=== PATIENT | female | born 1995 | race Caucasian/White ===

== ENCOUNTER → 2017-07-16 | Outpatient (CLI) | payer BC, OTHER ==
[2017-07-16 13:33] LABS: BASO % 0.3 % (0.0-1.0); EOS # 0.2 10^3/uL (0.0-0.50); EOS % 3.2 % (0.0-3.0); IMMATURE GRANULOCYTE % 0.3 % (0-0); LYMPH # 1.5 10^3/uL (1.5-6.5); MEAN CORPUSCULAR HEMOGLOBIN 29.3 pg (27.0-33.0); MEAN CORPUSCULAR HGB CONC 33.2 g/dl (32.0-36.5); MEAN CORPUSCULAR VOLUME 88.1 fl (80.0-96.0); MONO # 0.5 10^3/uL (0.0-0.8); MONO % 6.9 % (0.0-5.0); NEUTROPHILS # 4.7 10^3/uL (1.8-7.7); NEUTROPHILS % 68.3 % (36.0-66.0); PLATELET COUNT, AUTOMATED 289 10^3/uL (150-450); RED CELL DISTRIBUTION WIDTH 12.6 % (11.5-14.5); WHITE BLOOD COUNT 6.9 10^3/uL (4.0-10.0)
[2017-07-16 14:23] LABS: HBsAg Prenatal NEGATIVE (NEGATIVE)
== END ==
LOC: M SMT 09:57
PROVIDERS: ATTEND Advanced Practice Midwife
DX: Z34.81 Encounter for supervision of other normal pregnancy, first trimester (principal); Z3A.08 8 weeks gestation of pregnancy

== ENCOUNTER → 2017-11-21 | Outpatient (CLI) | payer BC, OTHER ==
[2017-11-21 14:17] LABS: HEMATOCRIT 35.8 % (36.0-47.0); HEMOGLOBIN 11.7 g/dl (12.0-16.0); MEAN CORPUSCULAR HEMOGLOBIN 29.3 pg (27.0-33.0); MEAN CORPUSCULAR HGB CONC 32.7 g/dl (32.0-36.5); MEAN CORPUSCULAR VOLUME 89.7 fl (80.0-96.0); PLATELET COUNT, AUTOMATED 244 10^3/uL (150-450); RED BLOOD COUNT 3.99 10^6/uL (4.00-5.40); RED CELL DISTRIBUTION WIDTH 13.8 % (11.5-14.5); WHITE BLOOD COUNT 9.1 10^3/uL (4.0-10.0)
[2017-11-21 14:39] LABS: GLUCOSE CHALLENGE TEST 1 HOUR 138 MG/DL (LESS THAN 140)
== END ==
LOC: M SMT 10:12
DX: Z34.82 Encounter for supervision of other normal pregnancy, second trimester (principal)
CPT/HCPCS: 82950

== ENCOUNTER → 2017-12-02 | Outpatient (CLI) | payer BC, OTHER ==
[2017-12-02 08:05] LABS: GLUCOSE, FASTING 88 MG/DL (LESS THAN 95)
[2017-12-02 09:47] LABS: 1 HR GLUCOSE 190 MG/DL (LESS THAN 180)
[2017-12-02 10:01] LABS: 2 HR GLUCOSE 121 MG/DL (LESS THAN 155)
[2017-12-02 11:36] LABS: 3 HR GLUCOSE 100 MG/DL (LESS THAN 140)
== END ==
LOC: M LAB 07:07
DX: R73.02 Impaired glucose tolerance (oral) (principal)

== ENCOUNTER → 2018-01-20 | Outpatient (REF) | payer OTHER | LOC: M LAB REF 17:01 | DX: Z34.83 Encounter for supervision of other normal pregnancy, third trimester (principal) | CPT/HCPCS: 87186 ==

== ENCOUNTER 2018-02-17 01:55 | Inpatient (IN) | payer BC, OTHER ==
[2018-02-17] MEDS: PENICILLIN G POTASSIUM IV 5 MU in D5W MINI-BAG PLUS 100 ML IV (03:31)
[2018-02-17] MEDS: LR 1,000 ML IV ×2 (03:37→14:09)
[2018-02-17 03:41] LABS: HEMATOCRIT 37.3 % (36.0-47.0); HEMOGLOBIN 12.4 g/dl (12.0-15.5); MEAN CORPUSCULAR HEMOGLOBIN 28.2 pg (27.0-33.0); MEAN CORPUSCULAR HGB CONC 33.2 g/dl (32.0-36.5); PLATELET COUNT, AUTOMATED 213 10^3/uL (150-450); RED BLOOD COUNT 4.39 10^6/uL (4.00-5.40); RED CELL DISTRIBUTION WIDTH 14.6 % (11.5-14.5); WHITE BLOOD COUNT 11.7 10^3/uL (4.0-10.0)
[2018-02-17] MEDS: LACTATED RINGER'S 1000 ML IV (04:29)
[2018-02-17] MEDS ORDERED: FENTANYL 2MCG/ML ROPIVACAINE 0.2% IN 0.9% NACL 200ML IVBAG As Ordered (05:06)
[2018-02-17] MEDS: PENICILLIN G POTASSIUM IV 2.5 MU in APPROPRIATE DILUENT 1 EA IV ×4 (08:47→20:01)
[2018-02-17] MEDS: OXYTOCIN DRIP 30 UNITS in APPROPRIATE DILUENT 1 EA IV (10:17)
[2018-02-17 23:37] LABS: CORD GAS ABE A -5.2; CORD GAS ABE V -3.9; CORD GAS HCO3 A 21.4 MEQ/L; CORD GAS HCO3 V 19.1 MEQ/L; CORD GAS O2 SAT A 49.2 %; CORD GAS O2 SAT V 84.1 %; CORD GAS PCO2 A 45.3 mmHg; CORD GAS PCO2 V 30.2 mmHg; CORD GAS PH A 7.292 UNITS; CORD GAS PH V 7.419 UNITS; CORD GAS PO2 A 22.2 mmHg; CORD GAS PO2 V 36.8 mmHg; CORD GAS SBC V 20.9 MEQ/L; CORD GAS TCO2 A 22.8 MEQ/L
[2018-02-18] MEDS: OXYTOCIN DRIP 30 UNITS in APPROPRIATE DILUENT 1 EA IV (00:08)
[2018-02-18] MEDS ORDERED: RHOGAM 300 MCG (1500 IU) INJ (J2790) IM (00:15)
[2018-02-18] MEDS: METHYLERGONOVINE MALEATE 0.2 MG/ML VIAL (J2210) IM (00:15)
[2018-02-18] MEDS ORDERED: METHYLERGONOVINE MALEATE 0.2 MG TAB PO (00:15)
[2018-02-18] MEDS ORDERED: MEASLES,MUMPS,RUBELLA VACCINE INJ (MMR-II) (90707) SC (00:15)
[2018-02-18] MEDS ORDERED: ONDANSETRON 4MG/2ML VIAL (J2405) IV (00:15)
[2018-02-18] MEDS: LIDOCAINE 1% MDV 20ML VIAL INFIL (00:15)
[2018-02-18] MEDS: IBUPROFEN 800 MG TAB PO ×2 (04:04→17:04)
[2018-02-18] MEDS: ACETAMINOPHEN 500 MG TAB PO ×2 (06:34→20:35)
[2018-02-18] MEDS: PRENATAL VITAMINS CHEWABLE TABLET PO (08:57)
[2018-02-18] MEDS: DIBUCAINE 1% OINTMENT 30GM TOP (20:35)
[2018-02-18] MEDS: DOCUSATE SODIUM 100 MG CAP PO (20:35)
[2018-02-19] MEDS: IBUPROFEN 800 MG TAB PO ×2 (06:00→15:09)
[2018-02-19] MEDS: PRENATAL VITAMINS CHEWABLE TABLET PO (09:00)
== END 2018-02-19 17:00 | disposition home or self-care (01) | DRG 560 ==
LOC: M LDO 01:55 → M OBS 02-18 01:40 → M LDI 02:52 → M OBS 02-18 23:38
PROVIDERS: Advanced Practice Midwife
PROC: 10E0XZZ Delivery of Products of Conception, External Approach (ICD-10-PCS; principal; 2018-02-17)
PROC: 0KQM0ZZ Repair Perineum Muscle, Open Approach (ICD-10-PCS; 2018-02-17)
PROC: 0UQMXZZ Repair Vulva, External Approach (ICD-10-PCS; 2018-02-17)
DX: O99.824 Streptococcus B carrier state complicating childbirth (principal); O69.81X0 Labor and delivery complicated by cord around neck, without compression, not applicable or unspecified; Z37.0 Single live birth; Z3A.39 39 weeks gestation of pregnancy; O71.82 Other specified trauma to perineum and vulva; O70.1 Second degree perineal laceration during delivery

== ENCOUNTER 2018-03-17 19:13 | Emergency (ER) | payer BC, OTHER ==
[2018-03-17] MEDS: NS 1,000 ML IV (20:00)
[2018-03-17 20:10] LABS: BASO % 0.2 % (0.0-1.0); EOS # 0.2 10^3/uL (0.0-0.50); EOS % 3.5 % (0.0-3.0); HEMATOCRIT 35.6 % (36.0-47.0); IMMATURE GRANULOCYTE % 0.2 % (0-3.0); LYMPH # 2.2 10^3/uL (1.5-6.5); LYMPH % 38.1 % (24.0-44.0); MEAN CORPUSCULAR HGB CONC 33.7 g/dl (32.0-36.5); MONO # 0.5 10^3/uL (0.0-0.8); MONO % 8.1 % (0.0-5.0); NEUTROPHILS # 2.8 10^3/uL (1.8-7.7); NEUTROPHILS % 49.9 % (36.0-66.0); PLATELET COUNT, AUTOMATED 239 10^3/uL (150-450); RED BLOOD COUNT 4.29 10^6/uL (4.00-5.40); RED CELL DISTRIBUTION WIDTH 13.4 % (11.5-14.5); WHITE BLOOD COUNT 5.7 10^3/uL (4.0-10.0)
[2018-03-17 20:14] LABS: ALBUMIN 3.4 GM/DL (3.2-5.2); ALKALINE PHOSPHATASE 131 U/L (45-117); ALT/SGPT 41 U/L (12-78); ANION GAP 12 MEQ/L (8-16); AST/SGOT 34 U/L (7-37); BILIRUBIN,DIRECT 0.1 MG/DL (0.0-0.2); BILIRUBIN,TOTAL 0.4 MG/DL (0.2-1.0); BLOOD UREA NITROGEN 8 MG/DL (7-18); CALCIUM LEVEL 8.9 MG/DL (8.5-10.1); CARBON DIOXIDE LEVEL 24 MEQ/L (21-32); CHLORIDE LEVEL 109 MEQ/L (98-107); CREATININE FOR GFR 0.78 MG/DL (0.55-1.30); GLOMERULAR FILTRATION RATE > 60.0 (>60); GLUCOSE, FASTING 103 MG/DL (70-100); LIPASE 132 U/L (73-393); POTASSIUM SERUM 3.2 MEQ/L (3.5-5.1); SODIUM LEVEL 145 MEQ/L (136-145); TOTAL PROTEIN 6.5 GM/DL (6.4-8.2)
[2018-03-17] MEDS: POTASSIUM CHLORIDE 10 MEQ SR TABLET PO (20:31)
[2018-03-17] MEDS: PANTOPRAZOLE 40MG INJ (PROTONIX) (C9113) IV (20:31)
== END 2018-03-17 21:33 | disposition home or self-care (01) ==
LOC: M ED 19:13
DX: O99.63 Diseases of the digestive system complicating the puerperium (principal); K52.9 Noninfective gastroenteritis and colitis, unspecified
CPT/HCPCS: C9113

== ENCOUNTER 2018-03-19 20:57 | Emergency (ER) | payer BC, OTHER ==
[2018-03-19 22:09] LABS: BASO % 0.5 % (0.0-1.0); EOS # 0.3 10^3/uL (0.0-0.50); EOS % 5.2 % (0.0-3.0); HEMATOCRIT 38.8 % (36.0-47.0); HEMOGLOBIN 12.8 g/dl (12.0-15.5); IMMATURE GRANULOCYTE % 0.3 % (0-3.0); LYMPH # 1.3 10^3/uL (1.5-6.5); LYMPH % 22.5 % (24.0-44.0); MEAN CORPUSCULAR HEMOGLOBIN 27.8 pg (27.0-33.0); MEAN CORPUSCULAR VOLUME 84.2 fl (80.0-96.0); MONO # 0.3 10^3/uL (0.0-0.8); MONO % 5.5 % (0.0-5.0); NEUTROPHILS # 3.8 10^3/uL (1.8-7.7); PLATELET COUNT, AUTOMATED 256 10^3/uL (150-450); RED BLOOD COUNT 4.61 10^6/uL (4.00-5.40); RED CELL DISTRIBUTION WIDTH 13.5 % (11.5-14.5); WHITE BLOOD COUNT 5.8 10^3/uL (4.0-10.0)
[2018-03-19 22:14] LABS: KETONE, URINE AUTO RFX TRACE mg/dL (NEGATIVE); LEUKOCYTE ESTERASE UR AUTO RFX NEGATIVE (NEGATIVE); MUCUS, URINE RFX SMALL (NEGATIVE); NITRITE, URINE AUTO RFX NEGATIVE (NEGATIVE); RBC, URINE AUTO RFX 2 /HPF (0-3); SPECIFIC GRAVITY UR AUTO RFX 1.012 (1.002-1.035); SQUAM EPITHELIAL CELL UR AURFX 1 /HPF (0-6); WBC, URINE AUTO RFX 3 /HPF (0-3)
[2018-03-19 22:33] LABS: ALBUMIN 3.6 GM/DL (3.2-5.2); ALBUMIN/GLOBULIN RATIO 1.03 (1.00-1.93); ALKALINE PHOSPHATASE 406 U/L (45-117); ALT/SGPT 465 U/L (12-78); ANION GAP 8 MEQ/L (8-16); AST/SGOT 419 U/L (7-37); BILIRUBIN,DIRECT 4.2 MG/DL (0.0-0.2); BILIRUBIN,TOTAL 5.4 MG/DL (0.2-1.0); BLOOD UREA NITROGEN 5 MG/DL (7-18); CALCIUM LEVEL 8.5 MG/DL (8.5-10.1); CARBON DIOXIDE LEVEL 27 MEQ/L (21-32); CHLORIDE LEVEL 107 MEQ/L (98-107); CREATININE FOR GFR 0.75 MG/DL (0.55-1.30); GLOMERULAR FILTRATION RATE > 60.0 (>60); GLUCOSE, FASTING 100 MG/DL (70-100); LIPASE 133 U/L (73-393); POTASSIUM SERUM 3.9 MEQ/L (3.5-5.1); SODIUM LEVEL 142 MEQ/L (136-145); TOTAL PROTEIN 7.1 GM/DL (6.4-8.2)
[2018-03-19] MEDS: ONDANSETRON 4MG/2ML VIAL (J2405) IV (23:10)
[2018-03-19] MEDS: MORPHINE 4 MG/ML 1ML VIAL/SYRINGE (J2270) IV (23:11)
[2018-03-20] MEDS: MORPHINE 4 MG/ML 1ML VIAL/SYRINGE (J2270) IV (02:00)
== END 2018-03-20 02:18 | disposition short-term general hospital (02) ==
LOC: M ED 20:57
DX: K80.50 Calculus of bile duct without cholangitis or cholecystitis without obstruction (principal)
CPT/HCPCS: J2270

== ENCOUNTER 2018-03-23 11:20 | Inpatient (IN) | payer BC, OTHER ==
[2018-03-23 11:50] LABS: BASO % 0.3 % (0.0-1.0); EOS # 0.2 10^3/uL (0.0-0.50); EOS % 2.8 % (0.0-3.0); HEMATOCRIT 40.5 % (36.0-47.0); HEMOGLOBIN 13.3 g/dl (12.0-15.5); IMMATURE GRANULOCYTE % 0.3 % (0-3.0); LYMPH # 1.2 10^3/uL (1.5-6.5); LYMPH % 15.5 % (24.0-44.0); MEAN CORPUSCULAR HEMOGLOBIN 28.1 pg (27.0-33.0); MEAN CORPUSCULAR HGB CONC 32.8 g/dl (32.0-36.5); MEAN CORPUSCULAR VOLUME 85.4 fl (80.0-96.0); MONO # 0.5 10^3/uL (0.0-0.8); MONO % 6.6 % (0.0-5.0); NEUTROPHILS # 5.9 10^3/uL (1.8-7.7); NEUTROPHILS % 74.5 % (36.0-66.0); PLATELET COUNT, AUTOMATED 278 10^3/uL (150-450); RED BLOOD COUNT 4.74 10^6/uL (4.00-5.40); RED CELL DISTRIBUTION WIDTH 14.4 % (11.5-14.5); WHITE BLOOD COUNT 7.9 10^3/uL (4.0-10.0)
[2018-03-23 11:59] LABS: KETONE, URINE AUTO RFX NEGATIVE (NEGATIVE); LEUKOCYTE ESTERASE UR AUTO RFX NEGATIVE (NEGATIVE); MUCUS, URINE RFX SMALL (NEGATIVE); NITRITE, URINE AUTO RFX NEGATIVE (NEGATIVE); RBC, URINE AUTO RFX 1 /HPF (0-3); SPECIFIC GRAVITY UR AUTO RFX 1.006 (1.002-1.035); SQUAM EPITHELIAL CELL UR AURFX 1 /HPF (0-6); WBC, URINE AUTO RFX 6 /HPF (0-3)
[2018-03-23 12:14] LABS: CONTROL LINE HCG INT CTR LINE PRESENT; HCG, SERUM QUALITATIVE NEGATIVE (NEGATIVE)
[2018-03-23 12:18] LABS: ANION GAP 10 MEQ/L (8-16); BLOOD UREA NITROGEN 6 MG/DL (7-18); CALCIUM LEVEL 8.9 MG/DL (8.5-10.1); CARBON DIOXIDE LEVEL 25 MEQ/L (21-32); CHLORIDE LEVEL 109 MEQ/L (98-107); CREATININE FOR GFR 0.76 MG/DL (0.55-1.30); GLOMERULAR FILTRATION RATE > 60.0 (>60); GLUCOSE, FASTING 107 MG/DL (70-100); POTASSIUM SERUM 4.1 MEQ/L (3.5-5.1); SODIUM LEVEL 144 MEQ/L (136-145)
[2018-03-23 12:19] LABS: ALBUMIN 3.6 GM/DL (3.2-5.2); ALBUMIN/GLOBULIN RATIO 0.97 (1.00-1.93); ALKALINE PHOSPHATASE 564 U/L (45-117); ALT/SGPT 459 U/L (12-78); AST/SGOT 333 U/L (7-37); BILIRUBIN,DIRECT 3.9 MG/DL (0.0-0.2); BILIRUBIN,TOTAL 4.9 MG/DL (0.2-1.0); TOTAL PROTEIN 7.3 GM/DL (6.4-8.2)
[2018-03-23 12:40] LABS: AMYLASE 7785 U/L (25-115); LIPASE 71712 U/L (73-393)
[2018-03-23] MEDS: MORPHINE 4 MG/ML 1ML VIAL/SYRINGE (J2270) IV (13:42)
[2018-03-23] MEDS: NS 1,000 ML IV ×2 (13:42→18:45)
[2018-03-23] MEDS: ONDANSETRON 4MG/2ML VIAL (J2405) IV ×2 (13:42→19:28)
[2018-03-23] MEDS: KETOROLAC 30 MG/ML VIAL (J1885) IV (14:21)
[2018-03-23] MEDS: GASTROGRAFIN SOLUTION 30ML PO ×2 (14:25→14:55)
[2018-03-23] MEDS ORDERED: HYDROmorphone HCL 1 MG/ML SYRINGE (J1170) As Ordered (15:21)
[2018-03-23] MEDS ORDERED: METOCLOPRAMIDE INJ 10MG/2ML VIAL (J2765) As Ordered (15:22)
[2018-03-23] MEDS ORDERED: ISOVUE-370 76% 100ML VIAL (Q9967) As Ordered (15:34)
[2018-03-23] MEDS: METOCLOPRAMIDE INJ 10MG/2ML VIAL (J2765) IV (15:45)
[2018-03-23] MEDS: HYDROmorphone HCL 1 MG/ML SYRINGE (J1170) IV ×2 (15:45→17:49)
[2018-03-24] MEDS: HYDROmorphone HCL 1 MG/ML SYRINGE (J1170) IV (00:22)
[2018-03-24] MEDS ORDERED: ONDANSETRON 4MG/2ML VIAL (J2405) IV (04:00)
[2018-03-24] MEDS: NS 1,000 ML IV ×4 (04:27→22:38)
[2018-03-24 06:45] LABS: BASO % 0.2 % (0.0-1.0); EOS # 0.2 10^3/uL (0.0-0.50); EOS % 3.2 % (0.0-3.0); HEMATOCRIT 36.2 % (36.0-47.0); HEMOGLOBIN 11.4 g/dl (12.0-15.5); IMMATURE GRANULOCYTE % 0.2 % (0-3.0); LYMPH # 1.6 10^3/uL (1.5-6.5); LYMPH % 27.5 % (24.0-44.0); MEAN CORPUSCULAR HEMOGLOBIN 27.2 pg (27.0-33.0); MEAN CORPUSCULAR HGB CONC 31.5 g/dl (32.0-36.5); MEAN CORPUSCULAR VOLUME 86.4 fl (80.0-96.0); MONO # 0.5 10^3/uL (0.0-0.8); NEUTROPHILS # 3.4 10^3/uL (1.8-7.7); NEUTROPHILS % 60.9 % (36.0-66.0); PLATELET COUNT, AUTOMATED 204 10^3/uL (150-450); RED BLOOD COUNT 4.19 10^6/uL (4.00-5.40); RED CELL DISTRIBUTION WIDTH 14.6 % (11.5-14.5); WHITE BLOOD COUNT 5.6 10^3/uL (4.0-10.0)
[2018-03-24] MEDS: MORPHINE 4 MG/ML 1ML VIAL/SYRINGE (J2270) IV ×2 (06:56→14:30)
[2018-03-24 07:05] LABS: ALBUMIN/GLOBULIN RATIO 0.88 (1.00-1.93); ALKALINE PHOSPHATASE 399 U/L (45-117); ALT/SGPT 288 U/L (12-78); ANION GAP 7 MEQ/L (8-16); AST/SGOT 113 U/L (7-37); BILIRUBIN,TOTAL 1.7 MG/DL (0.2-1.0); BLOOD UREA NITROGEN 5 MG/DL (7-18); CALCIUM LEVEL 8.3 MG/DL (8.5-10.1); CARBON DIOXIDE LEVEL 26 MEQ/L (21-32); CHLORIDE LEVEL 111 MEQ/L (98-107); CREATININE FOR GFR 0.62 MG/DL (0.55-1.30); GLOMERULAR FILTRATION RATE > 60.0 (>60); GLUCOSE, FASTING 76 MG/DL (70-100); LIPASE 8713 U/L (73-393); POTASSIUM SERUM 3.5 MEQ/L (3.5-5.1); SODIUM LEVEL 144 MEQ/L (136-145); TOTAL PROTEIN 6.4 GM/DL (6.4-8.2)
[2018-03-24 07:36] LABS: AMYLASE 1652 U/L (25-115)
[2018-03-24] MEDS: PANTOPRAZOLE 40MG INJ (PROTONIX) (C9113) IV (08:03)
[2018-03-25] MEDS: MORPHINE 4 MG/ML 1ML VIAL/SYRINGE (J2270) IV ×3 (01:20→11:52)
[2018-03-25 07:07] LABS: ALBUMIN 2.7 GM/DL (3.2-5.2); ALBUMIN/GLOBULIN RATIO 0.84 (1.00-1.93); ALKALINE PHOSPHATASE 330 U/L (45-117); ALT/SGPT 198 U/L (12-78); AMYLASE 476 U/L (25-115); ANION GAP 9 MEQ/L (8-16); AST/SGOT 52 U/L (7-37); BILIRUBIN,TOTAL 1.4 MG/DL (0.2-1.0); BLOOD UREA NITROGEN 5 MG/DL (7-18); CALCIUM LEVEL 8.1 MG/DL (8.5-10.1); CARBON DIOXIDE LEVEL 24 MEQ/L (21-32); CHLORIDE LEVEL 108 MEQ/L (98-107); CREATININE FOR GFR 0.58 MG/DL (0.55-1.30); GLOMERULAR FILTRATION RATE > 60.0 (>60); GLUCOSE, FASTING 68 MG/DL (70-100); LIPASE 1489 U/L (73-393); POTASSIUM SERUM 3.4 MEQ/L (3.5-5.1); SODIUM LEVEL 141 MEQ/L (136-145); TOTAL PROTEIN 5.9 GM/DL (6.4-8.2)
[2018-03-25] MEDS: PANTOPRAZOLE 40MG INJ (PROTONIX) (C9113) IV (08:47)
[2018-03-25] MEDS: NS 1,000 ML IV ×2 (11:54→19:54)
[2018-03-25] MEDS ORDERED: MIDAZOLAM INJ 2 MG/2 ML VIAL (J2250) As Ordered (13:54)
[2018-03-25] MEDS ORDERED: ROCURONIUM BROMIDE 50 MG/5 ML VIAL As Ordered (13:54)
[2018-03-25] MEDS ORDERED: LIDOCAINE 2% INJ 100 MG/5 ML SDV (FOR ANES.) As Ordered (13:54)
[2018-03-25] MEDS ORDERED: fentaNYL 100 MCG/2 ML INJECTION (J3010) As Ordered (13:54)
[2018-03-25] MEDS ORDERED: PROPOFOL 200 MG/20 ML VIAL As Ordered (13:56)
[2018-03-25] MEDS: ISOVUE-300 61% 50ML VIAL (Q9967) As Ordered (14:55)
[2018-03-25] MEDS ORDERED: ONDANSETRON 4MG/2ML VIAL (J2405) As Ordered (14:57)
[2018-03-25] MEDS ORDERED: GLYCOPYRROLATE INJ 0.2 MG/ML 2 ML VIAL As Ordered (15:07)
[2018-03-25] MEDS ORDERED: NEOSTIGMINE 10 MG/10 ML VIAL (J2710) As Ordered (15:07)
[2018-03-25] MEDS ORDERED: fentaNYL 100 MCG/2 ML INJECTION (J3010) IV (15:45)
[2018-03-25] MEDS ORDERED: ONDANSETRON 4MG/2ML VIAL (J2405) IV (15:45)
[2018-03-25] MEDS: LR 1,000 ML IV (16:30)
[2018-03-26] MEDS: NS 1,000 ML IV ×3 (03:54→14:23)
[2018-03-26 07:01] LABS: BASO % 0.1 % (0.0-1.0); EOS # 0.1 10^3/uL (0.0-0.50); EOS % 0.8 % (0.0-3.0); HEMATOCRIT 32.6 % (36.0-47.0); HEMOGLOBIN 10.8 g/dl (12.0-15.5); IMMATURE GRANULOCYTE % 0.4 % (0-3.0); LYMPH # 1.3 10^3/uL (1.5-6.5); LYMPH % 18.5 % (24.0-44.0); MEAN CORPUSCULAR HGB CONC 33.1 g/dl (32.0-36.5); MEAN CORPUSCULAR VOLUME 84.5 fl (80.0-96.0); MONO # 0.6 10^3/uL (0.0-0.8); NEUTROPHILS # 5.2 10^3/uL (1.8-7.7); NEUTROPHILS % 72.2 % (36.0-66.0); PLATELET COUNT, AUTOMATED 210 10^3/uL (150-450); RED BLOOD COUNT 3.86 10^6/uL (4.00-5.40); RED CELL DISTRIBUTION WIDTH 13.9 % (11.5-14.5); WHITE BLOOD COUNT 7.2 10^3/uL (4.0-10.0)
[2018-03-26 07:15] LABS: AMYLASE 425 U/L (25-115)
[2018-03-26 07:15] LABS: LIPASE 1923 U/L (73-393)
[2018-03-26 07:30] LABS: ALBUMIN 2.8 GM/DL (3.2-5.2); ALBUMIN/GLOBULIN RATIO 0.93 (1.00-1.93); ALKALINE PHOSPHATASE 299 U/L (45-117); ALT/SGPT 152 U/L (12-78); ANION GAP 10 MEQ/L (8-16); AST/SGOT 28 U/L (7-37); BILIRUBIN,TOTAL 1.1 MG/DL (0.2-1.0); BLOOD UREA NITROGEN 5 MG/DL (7-18); CALCIUM LEVEL 8.2 MG/DL (8.5-10.1); CARBON DIOXIDE LEVEL 25 MEQ/L (21-32); CHLORIDE LEVEL 107 MEQ/L (98-107); CREATININE FOR GFR 0.54 MG/DL (0.55-1.30); GLOMERULAR FILTRATION RATE > 60.0 (>60); GLUCOSE, FASTING 86 MG/DL (70-100); POTASSIUM SERUM 3.9 MEQ/L (3.5-5.1); SODIUM LEVEL 142 MEQ/L (136-145); TOTAL PROTEIN 5.8 GM/DL (6.4-8.2)
[2018-03-26] MEDS: PANTOPRAZOLE 40MG INJ (PROTONIX) (C9113) IV (08:56)
[2018-03-26] MEDS ORDERED: PERCOCET 5MG/325MG TAB PO ×2 (14:00)
== END 2018-03-26 17:00 | disposition home or self-care (01) | DRG 282 ==
LOC: M ED INP 03-24 03:54 → M ICU 03-24 06:02 → M ED 11:20 → M MS4PR 03-24 10:30 → M PED 03-24 16:03
PROC: 0FC98ZZ Extirpation of Matter from Common Bile Duct, Via Natural or Artificial Opening Endoscopic (ICD-10-PCS; principal; 2018-03-25 08:00)
DX: K85.90 Acute pancreatitis without necrosis or infection, unspecified (principal); K75.9 Inflammatory liver disease, unspecified

== ENCOUNTER 2018-04-06 09:16 | Day surgery (SDC) | payer BC, OTHER ==
[2018-04-06] MEDS: LR 1,000 ML IV (09:45)
[2018-04-06] MEDS ORDERED: PROPOFOL 200 MG/20 ML VIAL As Ordered (09:49)
[2018-04-06] MEDS ORDERED: MIDAZOLAM INJ 2 MG/2 ML VIAL (J2250) As Ordered (09:49)
[2018-04-06] MEDS ORDERED: LIDOCAINE 2% INJ 100 MG/5 ML SDV (FOR ANES.) As Ordered (09:49)
[2018-04-06] MEDS ORDERED: fentaNYL 100 MCG/2 ML INJECTION (J3010) As Ordered ×3 (09:50→11:40)
[2018-04-06] MEDS ORDERED: dexameTHASONE 4 MG/ML 1ML VIAL (J1100) As Ordered (09:53)
[2018-04-06] MEDS ORDERED: ONDANSETRON 4MG/2ML VIAL (J2405) As Ordered (09:53)
[2018-04-06 10:24] LABS: CONTROL LINE UCG INT CTR LINE PRESENT; URINE PREG TEST NEGATIVE (NEGATIVE)
[2018-04-06] MEDS ORDERED: KETOROLAC 60 MG/2 ML VIAL (J1885) As Ordered (11:08)
[2018-04-06] MEDS ORDERED: GLYCOPYRROLATE INJ 0.2 MG/ML 2 ML VIAL As Ordered (11:08)
[2018-04-06] MEDS ORDERED: NEOSTIGMINE 10 MG/10 ML VIAL (J2710) As Ordered (11:08)
[2018-04-06] MEDS: BUPIVACAINE/EPIN 0.25% 30 ML VIAL As Ordered (11:12)
[2018-04-06] MEDS ORDERED: PERCOCET 5MG/325MG TAB As Ordered (11:40)
[2018-04-06] MEDS: PERCOCET 5MG/325MG TAB PO ×2 (11:45→12:15)
[2018-04-06] MEDS: fentaNYL 100 MCG/2 ML INJECTION (J3010) IV ×4 (11:45→12:15)
[2018-04-06] MEDS ORDERED: HYDROMORPHONE HCL 0.5 MG/ 0.5 ML SYRINGE (J1170 PER 1) IV (12:00)
[2018-04-06] MEDS ORDERED: LR 1,000 ML IV (12:00)
[2018-04-06] MEDS ORDERED: ONDANSETRON 4MG/2ML VIAL (J2405) IV (12:00)
[2018-04-06] MEDS ORDERED: NORCO, ANEXSIA 5/325MG TABLET (HYDROcodone/ACETAMINOPHEN) PO (12:15)
== END 2018-04-06 14:50 | disposition home or self-care (01) ==
LOC: M SDC 09:16
DX: K80.19 Calculus of gallbladder with other cholecystitis with obstruction (principal)
CPT/HCPCS: 47562

== ENCOUNTER → 2018-04-08 | Outpatient (REF) | payer OTHER ==
[2018-04-08 13:32] LABS: CONTROL LINE UCG INT CTR LINE PRESENT; URINE PREG TEST NEGATIVE (NEGATIVE)
== END ==
LOC: M SFHCPLAZ 11:29
DX: Z09 Encounter for follow-up examination after completed treatment for conditions other than malignant neoplasm (principal)

== ENCOUNTER → 2018-04-28 | Outpatient (REF) | payer OTHER | LOC: M LAB REF 18:48 | DX: Z12.4 Encounter for screening for malignant neoplasm of cervix (principal) ==

== ENCOUNTER → 2019-07-23 | Outpatient (REF) | payer OTHER ==
[~2019-07-23] MED LIST: COLA100C5 PO; MAPA500T2 PO; MOTR200T44 PO; OMEP10CA PO; OMEP10CASR PO; PRENTAB9 PO; ZOFR4TAB14 PO
== END ==
LOC: M LAB REF 17:39
PROVIDERS: ATTEND Advanced Practice Midwife
DX: Z12.4 Encounter for screening for malignant neoplasm of cervix (principal)

== ENCOUNTER → 2019-08-25 | Outpatient (CLI) | payer BC, OTHER ==
--- NOTE | 2019-08-25 08:20 | REP ---
Clinical: Epigastric pain. Technique: Real time bush scale ultrasound examination using linear high frequency transducer. Findings: Directed ultrasound examination along the periumbilical anterior abdominal wall suggests a small fat containing ventral hernia measuring approximately 7 - 10 mm. Hernia appears to be partially reducible with transducer pressure. Impression: Very small subcentimeter fat-containing periumbilical ventral hernia. Electronically Signed by Mohit Wilson MD 08/25/2019 08:11 A
== END ==
LOC: M RAD 07:34
PROVIDERS: ATTEND Physician Assistant
DX: K44.9 Diaphragmatic hernia without obstruction or gangrene (principal)

== ENCOUNTER 2019-09-20 07:27 | Day surgery (SDC) | payer BC, OTHER ==
[~2019-09-20] VITALS: Ht 154.9 cm; Wt 80.3 kg
[~2019-09-20 07:27] MED LIST changes: +BUPIVACAINE HCL 0.25% 30 ML VIAL As Ordered ONE; +MONO0.25 PO; +ceFAZolin SOD 2 GM in IV 1 EA IV ONE
[2019-09-20] MEDS ORDERED: KETOROLAC 60 MG/2 ML VIAL (J1885) As Ordered ONE (07:57)
[2019-09-20] MEDS ORDERED: SUGAMMADEX SODIUM 500 MG/5 ML VIAL (BRIDION) As Ordered ONE (07:57)
[2019-09-20] MEDS ORDERED: LR 1,000 ML IV ONE (08:00)
[2019-09-20] MEDS ORDERED: dexameTHASONE 4 MG/ML 1ML VIAL (J1100) As Ordered ONE (08:01)
[2019-09-20] MEDS ORDERED: LIDOCAINE 2% INJ 100 MG/5 ML SDV (FOR ANES.) As Ordered ONE (08:01)
[2019-09-20] MEDS ORDERED: MIDAZOLAM INJ 2 MG/2 ML VIAL (J2250) As Ordered ONE (08:01)
[2019-09-20] MEDS ORDERED: ROCURONIUM BROMIDE 50 MG/5 ML VIAL As Ordered ONE (08:01)
[2019-09-20] MEDS ORDERED: fentaNYL 100 MCG/2 ML INJECTION (J3010) As Ordered ONE ×2 (08:01→09:00)
[2019-09-20] MEDS ORDERED: PROPOFOL 200 MG/20 ML VIAL As Ordered ONE (08:01)
[2019-09-20] MEDS ORDERED: ONDANSETRON 4MG/2ML VIAL (J2405) As Ordered ONE (08:02)
[2019-09-20] MEDS ORDERED: BUPIVACAINE/EPIN 0.25% 30 ML VIAL As Ordered ONE (08:22)
[2019-09-20] MEDS ORDERED: ACETAMINOPHEN 1000MG 100ML IV BTL (OFIRMEV) (J0131 PER 10MG) As Ordered ONE (09:24)
[2019-09-20] MEDS ORDERED: METOCLOPRAMIDE INJ 10MG/2ML VIAL (J2765) As Ordered ONE (09:33)
[2019-09-20] MEDS ORDERED: NORCO, ANEXSIA 5/325MG TABLET (HYDROcodone/ACETAMINOPHEN) PO PRN (10:00)
[2019-09-20] MEDS ORDERED: METOCLOPRAMIDE INJ 10MG/2ML VIAL (J2765) IV PRN (10:00)
[2019-09-20] MEDS ORDERED: LR 1,000 ML IV SCH (10:00)
[2019-09-20] MEDS ORDERED: fentaNYL 100 MCG/2 ML INJECTION (J3010) IV PRN (10:00)
[2019-09-20] MEDS ORDERED: ONDANSETRON 4MG/2ML VIAL (J2405) IV PRN (10:00)
[2019-09-20] MEDS: PERCOCET 5MG/325MG TAB PO PRN ×2 (10:15→10:48)
[2019-09-20 12:14] VITALS: BP 107/54
--- NOTE | 2019-09-23 15:12 | RO ---
DATE OF PROCEDURE: 09/20/2019 PREOPERATIVE DIAGNOSIS: Incarcerated incisional hernia. POSTOPERATIVE DIAGNOSIS: Incarcerated incisional hernia. PROCEDURE: Laparoscopic incarcerated incisional hernia repair. SURGEON: Dr. Plascencia DRUG PURCHASER: None. ANESTHESIA: General. ESTIMATED BLOOD LOSS: 5 mL. COMPLICATIONS: None. INDICATION FOR PROCEDURE: The patient is a 23-year-old female postoperative from a laparoscopic cholecystectomy over a year ago who presents with some epigastric tenderness, found to have a small 8 mm, nonreducible hernia at her epigastric port site. The recommendation was to proceed with laparoscopic repair of incarcerated incisional hernia. Risks and benefits of the procedure, not limited to but including bleeding, infection, hernia recurrence, hernia formation, damage to surrounding structure, need for further surgery were discussed in detail with the patient and informed consent was obtained, procedure was planned. DESCRIPTION OF PROCEDURE: The patient was brought back to operating room 2. After sufficient sedation, the abdomen was sterilely prepped and draped. Next, time-out was done to confirm proper patient and proper procedure. Following that, a 5 mm incision was made in left lower quadrant, Veress needle inserted and the abdomen was insufflated to 15 mmHg. Next, the Veress needle was removed and a 5 mm OptiView port was used to gain access to the abdomen. Once the abdomen was entered, another 5 mm port was placed in the left lower quadrant. Using Enseal, the falciform ligament was taken down superiorly until the hernia was identified. There was a small amount of fat that was incarcerated through it, this was all reduced. Next, a Parietex composite mesh was cut to about 7 cm in diameter. 0 Vicryl suture was placed in the center of the mesh. The mesh was then placed down the port inside the abdomen. Suture was brought out through the center of the hernia defect through the abdominal wall using a Albert-Monisha needle. The secure strap tacker was used to place a row of tacks around the perimeter of the mesh. Once that was completed, the abdomen was desufflated. Skin incisions were closed with 4-0 Vicryl subcuticular sutures. The abdomen was cleaned and dried. Steri-Strips, 4x4 and tape were applied, thus ending procedure.
== END 2019-09-20 12:30 | disposition home or self-care (01) ==
LOC: M SDC 07:27
PROVIDERS: ATTEND Surgery
DX: K43.0 Incisional hernia with obstruction, without gangrene (principal); J45.909 Unspecified asthma, uncomplicated; Z90.49 Acquired absence of other specified parts of digestive tract; Z87.19 Personal history of other diseases of the digestive system; Z79.3 Long term (current) use of hormonal contraceptives
CPT/HCPCS: 49655; 81025; C1781; J0131; J0690; J1100; J1885; J2250; J2405; J2765; J3010

== ENCOUNTER → 2020-10-31 | Outpatient (REF) | payer OTHER ==
[~2020-10-31] MED LIST changes: -BUPIVACAINE HCL 0.25% 30 ML VIAL As Ordered ONE; -ceFAZolin SOD 2 GM in IV 1 EA IV ONE
== END ==
LOC: M SFHCWAGY 17:17
PROVIDERS: ATTEND Advanced Practice Midwife
DX: Z12.4 Encounter for screening for malignant neoplasm of cervix (principal)
CPT/HCPCS: 87624; G0123

== ENCOUNTER → 2020-11-14 | Outpatient (REF) | payer OTHER ==
[2020-11-14 17:02] LABS: BASO % 0.3 % (0.0-1.0); EOS # 0.3 10^3/uL (0.0-0.5); EOS % 3.8 % (0.0-3.0); HEMATOCRIT 42.4 % (36.0-47.0); HEMOGLOBIN 13.4 g/dl (12.0-15.5); LYMPH # 2.1 10^3/uL (1.5-5.0); MEAN CORPUSCULAR HEMOGLOBIN 28.1 pg (27.0-33.0); MEAN CORPUSCULAR HGB CONC 31.6 g/dl (32.0-36.5); MEAN CORPUSCULAR VOLUME 88.9 fl (80.0-96.0); MONO # 0.5 10^3/uL (0.0-0.8); MONO % 6.9 % (2.0-8.0); NEUTROPHILS # 3.9 10^3/uL (1.5-8.5); NEUTROPHILS % 57.7 % (36.0-66.0); PLATELET COUNT, AUTOMATED 307 10^3/uL (150-450); RED BLOOD COUNT 4.77 10^6/uL (4.00-5.40); WHITE BLOOD COUNT 6.8 10^3/uL (4.0-10.0)
[2020-11-14 17:07] LABS: ALBUMIN 3.6 GM/DL (3.2-5.2); ALT/SGPT 35 U/L (12-78); BILIRUBIN,TOTAL 0.4 MG/DL (0.2-1.0); BLOOD UREA NITROGEN 8 MG/DL (7-18); CALCIUM LEVEL 8.7 MG/DL (8.5-10.1); CARBON DIOXIDE LEVEL 28 MEQ/L (21-32); CHLORIDE LEVEL 107 MEQ/L (98-107); CREATININE FOR GFR 0.77 MG/DL (0.55-1.30); GLOMERULAR FILTRATION RATE > 60.0 (>60); GLUCOSE, FASTING 85 MG/DL (70-100); POTASSIUM SERUM 4.4 MEQ/L (3.5-5.1); SODIUM LEVEL 141 MEQ/L (136-145); TOTAL PROTEIN 7.1 GM/DL (6.4-8.2)
== END ==
LOC: M SFHCADAM 13:06
PROVIDERS: ATTEND Family Medicine
DX: Z00.00 Encounter for general adult medical examination without abnormal findings (principal); E66.9 Obesity, unspecified

== ENCOUNTER 2021-08-31 08:27 | Emergency (ER) | payer BC, OTHER ==
[~2021-08-31] VITALS: Ht 154.9 cm; Wt 86.4 kg
--- OUTSIDE RECORDS SUMMARY | 2021-08-31 08:35 | CCD ---
Author Author [facility] Organization [facility] Address Unknown Phone Unavailable Support Name Relationship Address Phone [employer] [place] [address] [employer] Next Of Kin [address] [place] [address] UE Next Of Kin Unknown Unavailable SOLOMON REED Next Of Kin [address] [facility] [address] [place] [address] [employer] Next Of Kin [address] [place] [address] [employer] Next Of Kin [address] [place] [address] [employer] Next Of Kin [address] [place] [address] ST Next Of Kin Unknown Unavailable PARVEEN BARRY Next Of Kin [address] [place] [address] PARVEEN BARRY [facility] [address] [place] [address] Unavailable Re-disclosure Warning The records that you are about to access may contain information from federally-assisted alcohol or drug abuse programs. If such information is present, then the following federally mandated warning applies: This information has been disclosed to you from records protected by federal confidentiality rules (42 CFR part 2). The federal rules prohibit you from making any further disclosure of this information unless further disclosure is expressly permitted by the written consent of the person to whom it pertains or as otherwise permitted by 42 CFR part 2. A general authorization for the release of medical or other information is NOT sufficient for this purpose. The Federal rules restrict any use of the information to criminally investigate or prosecute any alcohol or drug abuse patient.The records that you are about to access may contain highly sensitive health information, the redisclosure of which is protected by Article 27-F of the [facility] Public Health law. If you continue you may have access to information: Regarding HIV / AIDS; Provided by facilities licensed or operated by the [facility] Office of Mental Health; or Provided by the [facility] Office for People With Developmental Disabilities. If such information is present, then the following [facility] mandated warning applies: This information has been disclosed to you from confidential records which are protected by state law. State law prohibits you from making any further disclosure of this information without the specific written consent of the person to whom it pertains, or as otherwise permitted by law. Any unauthorized further disclosure in violation of state law may result in a fine or usp sentence or both. A general authorization for the release of medical or other information is NOT sufficient authorization for further disc losure. Family History Family Member Name Family Member Gender Family Member Status Date o f Status Description Data Source(s) Unknown Unknown Problem MEDENT ([facility]) Unknown Unknown Problem MEDENT ([facility]) Encounters Encounter Providers Location Date Indications Data Source(s ) Unknown [address] [facility] [id number] 04/17/2021 12:00:00 AM EDT eCW1 ([facility]) Unknown [address] [facility] [id number] 11/23/2020 12:00:00 AM EST eCW1 ([facility]) Outpatient [address] [facility] [id number] 11/13/2020 12:00:00 AM EST eCW1 ([facility]) Outpatient [address] [facility] [id number] 10/31/2020 12:00:00 AM EST eCW1 ([facility]) Unknown [address] [facility] [id number] 10/27/2020 12:00:00 AM EST eCW1 ([facility]) Immunizations Vaccine Date Status Description Data Source(s) COVID-19 VACCINE Moderna 05/18/2021 12:00:00 AM EDT completed [facility] Vaccine Series Complete: YESThis Data wa s Submitted to [facility] Via [employer]. COVID-19 VACCINE Moderna 04/13/2021 12:00:00 AM EDT completed [facility]: NOThis Data was Submitted to [facility] Via [employer]. Medications Medication Brand Name Start Date Product Form Dose Route Admi nistrative Instructions Pharmacy Instructions Status Indications Reaction Description Data Source(s) Acetaminophen 325 MG / Hydrocodone Bitartrate 5 MG Ora l Tablet 5-325 mg HYDROCODONE/ACETAMINOPHEN 02/12/2021 12:00:00 AM EDT tablet 15 TAKE ONE TABLET BY MOUTH EVERY 4 TO 6 HOURS NEEDED FOR PAIN MAXIMUM DAILY DOSE = 5 TAKE ONE TABLET BY MOUTH EVERY 4 TO 6 HOURS NEEDED FOR PAIN MAXIMUM DAILY DOSE = 5 SOLD: 02/12/2021 [facility] 600 mg 02/12/2021 12:00:00 AM EDT tablet 40 TAKE ONE TABLET BY MOUTH FOUR TIMES A DAY NEEDED TAKE ONE TABLET BY MOUTH FOUR TIMES A DAY NEEDED SO LD: 02/12/2021 [facility] 4 mg 02/12/2021 12:00:00 AM EDT tablets,dose pack 21 TAKE DIRECTED TAKE DIRECTED SOLD: 02/12/2021 [facility] 500 mg 02/12/2021 12:00:00 AM EDT capsule 15 TAKE ONE CAPSULE BY MOUTH EVERY 8 HOURS TAKE ONE CAPSULE BY MOUTH EVERY 8 HOURS SOLD: 02/12/2021 [facility] 0.12 % 02/12/2021 12:00:00 AM EDT mouthwash 473 RINSE WITH 1 CAPFUL THREE TIMES A DAY BEGINNING TOMORROW RINSE WITH 1 CAPFUL THREE TIMES A DAY BE GINNING TOMORROW SOLD: 02/12/2021 [facility] SCOTT Fe 1.5/30 28 Day Pack 1.5 mg-30 mcg (21)/75 mg ( 7) NORETHINDRONE-E.ESTRADIOL-IRON 11/01/2020 12:00:00 AM EST tablet 84 TAKE ONE TABLET BY MOUTH EVERY DAY TAKE ONE TABLET BY MOUTH EVERY DAY SOLD: 01/25/2021 [facility] 1.5 mg-30 mcg (21)/75 mg (7) 11/01/2020 12:00:00 AM EST tabl et 84 TAKE ONE TABLET BY MOUTH EVERY DAY TAKE ONE TABLET BY MOUTH EVERY DAY SOLD: 11/01/2020 [facility] Gisselle FE 1.5/30 1.5-30 MG-MCG Gisselle FE 1.5/30 1.5-30 MG-MC G 10/31/2020 12:00:00 AM EST 1.0 {tablet} active Marrero iley FE 1.5/30 1.5-30 MG-MCG eCW1 ([facility]) Gisselle FE 1.5/30 1.5-30 MG-MCG Gisselle FE 1.5/30 1.5-30 MG-MC G 10/31/2020 12:00:00 AM EST 1.0 {tablet} active Marrero iley FE 1.5/30 1.5-30 MG-MCG eCW1 ([facility]) Gisselle FE 1.5/30 1.5-30 MG-MCG Gisselle FE 1.5/30 1.5-30 MG-MC G 10/31/2020 12:00:00 AM EST 1.0 {tablet} active Marrero iley FE 1.5/30 1.5-30 MG-MCG eCW1 ([facility]) Gisselle FE 1.5/30 1.5-30 MG-MCG Gisselle FE 1.5/30 1.5-30 MG-MC G 10/31/2020 12:00:00 AM EST 1.0 {tablet} active Marrero iley FE 1.5/30 1.5-30 MG-MCG eCW1 ([facility]) Gisselle Fe 10/18 28 Day Pack 1 mg-20 mcg (21)/75 mg (7) NORETHINDRONE ACETATE- ETHINYL ESTRADIOL/FERROUS FUMARATE 10/28/2020 12:00:00 AM EST tablet 28 TAKE ONE TABLET BY MOUTH EVERY DAY TAKE ONE TABLET BY MOUTH EVERY DAY SOLD: 12/03/2020 [facility] Gisselle Fe 10/18 28 Day Pack 1 mg-20 mcg (21)/75 mg (7) NORETHINDRONE ACETATE- ETHINYL ESTRADIOL/FERROUS FUMARATE 10/28/2020 12:00:00 AM EST tablet 28 TAKE ONE TABLET BY MOUTH EVERY DAY TAKE ONE TABLET BY MOUTH EVERY DAY SOLD: 10/29/2020 [facility] Microgestin FE 10/18 1-20 MG-MCG Microgestin FE 10/18 1-20 MG- MCG 10/27/2020 12:00:00 AM EST 1.0 {tablet} active Mi crogestin FE 10/18 1-20 MG-MCG eCW1 ([facility]) 0.25-35 mg-mcg 07/01/2020 12:00:00 AM EDT tablet 28 TAKE ONE TABLET BY MOUTH EVERY DAY TAKE ONE TABLET BY MOUTH EVERY DAY SOLD: 09/24/2020 [facility] 0.25-35 mg-mcg 07/01/2020 12:00:00 AM EDT tablet 28 TAKE ONE TABLET BY MOUTH EVERY DAY TAKE ONE TABLET BY MOUTH EVERY DAY SOLD: 08/27/2020 [facility] 0.25-35 mg-mcg 07/01/2020 12:00:00 AM EDT tablet 28 TAKE ONE TABLET BY MOUTH EVERY DAY TAKE ONE TABLET BY MOUTH EVERY DAY SOLD: 07/30/2020 [facility] 0.25-35 mg-mcg 07/01/2020 12:00:00 AM EDT tablet 28 TAKE ONE TABLET BY MOUTH EVERY DAY TAKE ONE TABLET BY MOUTH EVERY DAY SOLD: 07/01/2020 [facility] Insurance Providers Payer name Policy type / Coverage type Policy ID Covered constitution party ID Covered constitution party's relationship to jeter Policy Jeter Plan Information [employer] [id number] MO2 [id number] R [facility] [id number] MO2 [id number] UNITED HEALTHCARE [id number] FA2 [id number] EMPIRE PLAN [facility] U [id number] Child [id number] [facility] [id number] FA2 [id number] BCBS EMPIRE JUSTINE DIV [id number] FA2 [id number] [facility] [id number] Child [id number] BCBS EMPIRE JUSTINE DIV [id number] BCBS EMPIRE JUSTINE DIV [id number] FA2 [id number] [facility]/[employer] Medigap Part B [id number] Self [id number] [facility] Commercial [id number] Family Dependent [id number] BCBS EMPIRE JUSTINE DIV [id number] FA2 [id number] [facility] Commercial [id number] Family Dependent [id number] [facility] ([facility]) [id number] Family Dependent [id number] [facility] Commercial [id number] Family Dependent [id number] [facility] Health [facility] (O) [id number] Family Dependent [id number] [facility] Commercial [id number] Family Dependent [id number] [facility] Health [facility] Organization (O) [id number] Family Dependent [id number] [employer] [id number] MO2 [id number] [employer] PPO O [id number] S [id number] [place] [facility] O [id number] C [id number] SELF PAY O UNAVAILABLE C UNAVAILA BLE [employer] [id number] MO2 [id number] BCBS EMPIRE JUSTINE DIV [id number] [employer] Medigap Part B [id number] Family Dependent [facility] Commercial [id number] Family Depende nt [employer] Medigap Part B [id number] Family Dependent [facility] Health Maintenance Organization ([facility]) [id number] Family Dependent BCBS OF [place] [id number] SP [id number] SELF PAY UNAVAILABLE SP UNAVAILA BLE [facility] [id number] [id number] [facility] P UNAVAILABLE [id number] C UNAVAILABLE [facility] [id number] FA2 [id number] [facility] [id number] FA2 [id number] [facility] JUSTINE DIV [id number] FA2 [id number] [employer] [id number] FA [id number] R O [id number] S [id number] [facility] O [id number] S [id number] Problems, Conditions, and Diagnoses Code Display Name Description Problem Type Effective Dates Data Source(s) E66.9 Obesity Obesity, unspecified Problem 11/13/2020 12:0 0:00 AM EST eCW1 ([facility]) Z68.39 Body mass index 35.00 to 39.99 Body mass index [ BMI] 39.0-39.9, adult Problem 11/13/2020 12:00:00 AM EST eCW1 ([facility]) Surgeries/Procedures No Information Results ID Date Data Source [id number] 09/29/2020 12:00:00 AM EST [facility] Name Value Range Interpretation Code Description Data Candie rce(s) Supporting Document(s) Carestart Rapid COVID Antigen Test [facility] This lab was reported by Анна alfredo. ID Date Data Source [id number] 09/29/2020 12:00:00 AM EST [facility] Name Value Range Interpretation Code Description Data Candie rce(s) Supporting Document(s) SARS coronavirus 2 RNA [Presence] in Res piratory specimen by LAKEISHA with probe detection [facility] This lab was ordered by Анна Giang and reported by [facility]. Procedure Social History Code Duration Value Status Description Data Source(s ) Smoking 11/13/2020 12:00:00 AM EST Never Smoker completed Never S moker eCW1 ([facility]) Smoking 11/13/2020 12:00:00 AM EST Never Smoker completed Never S moker eCW1 ([facility]) Smoking 11/13/2020 12:00:00 AM EST Never Smoker completed Never S moker eCW1 ([facility]) Smoking 10/31/2020 12:00:00 AM EST Never Smoker completed Never S moker eCW1 ([facility]) Vital Signs ID Date Data Source UNK Name Value Range Interpretation Code Description Data Source(s) Body weight 201 [lb_av] 201 [lb_av] eCW1 ([facility]) Body height 62.5 [in_i] 62.5 [in_i] eCW1 ([facility]) Body mass index (BMI) [Ratio] 36.17 kg/m2 36.17 kg/m2 eCW1 ([facility]) Heart rate 94 /min 94 /min eCW1 ([facility]) Respiratory rate 18 /min 18 /min eCW1 ([facility]) Body temperature 96.5 [degF] 96.5 [degF] eCW1 ( [facility]) Systolic blood pressure 100 mm[Hg] 100 mm[Hg] e CW1 ([facility]) Diastolic blood pressure 60 mm[Hg] 60 mm[Hg] eCW1 ([facility]) Body weight 205.0 [lb_av] 205.0 [lb_av] eCW1 ([facility]) Body weight 92.99 kg 92.99 kg eCW1 ([facility]) Body height 62.5 [in_i] 62.5 [in_i] eCW1 ([facility]) Body mass index (BMI) [Ratio] 36.89 kg/m2 36.89 kg/m2 eCW1 ([facility]) Systolic blood pressure 114 mm[Hg] 114 mm[Hg] e CW1 ([facility]) Diastolic blood pressure 76 mm[Hg] 76 mm[Hg] eCW1 ([facility]) Patient Treatment Plan of Care Planned Activity Planned Date Details Description Data Source (s) Gisselle FE .5 1.5-30 MG-MCG 10/31/2020 12:00:00 AM EST eCW1 ([facility]) Microgestin FE 10/18 1-20 MG-MCG 10/27/2020 12:00:00 AM EST eCW1 ([facility])
[2021-08-31 10:14] LABS: RSV AMPLIFICATION NEGATIVE (NEGATIVE)
[2021-08-31] MEDS ORDERED: NS 1,000 ML IV ONE (13:40)
[2021-08-31] MEDS ORDERED: ONDANSETRON 4MG/2ML VIAL IV ONE (13:40)
--- OUTSIDE RECORDS SUMMARY | 2021-08-31 13:48 | CCD ---
Author Author [facility] Organization [facility] Address Unknown Phone Unavailable Support Name Relationship Address Phone [employer] [address] [employer] TECHNICIAN [employer] Next Of Kin [address] [place] [address] UE Next Of Kin Unknown Unavailable SOLOMON REED Next Of Kin [address] [place] [address] [employer] Next Of Kin [address] [place] [address] [employer] Next Of Kin [address] [place] [address] [employer]EX[employer] Next Of Kin [address] [place] [address] ST Next Of Kin Unknown Unavailable Caroline BARRY Next Of Kin [address] [facility] [address] [place] [address] PARVEEN BARRY [facility] [address] [place] [address] Unavailable Re-disclosure Warning The records that you [...] is protected by Article 27-F of the [facility] Public Health law. If you continue you may have access to information: Regarding HIV / AIDS; Provided by facilities licensed or operated by the [facility] Office of Mental Health; or Provided by the [facility] Office for People With Developmental Disabilities. If such information is present, then the following [facility] mandated warning applies: This information has [...] law may result in a fine or senior living sentence or both. A general authorization for the release of medical or other information is NOT sufficient authorization for further disc losure. Family History Family Member Name Family Member Gender Family Member Status Date o f Status Description Data Source(s) Unknown Unknown Problem MEDENT ([facility]) Unknown Unknown Problem MEDENT ([facility]) Encounters Encounter Providers Location Date Indications Data Source(s ) Unknown [address] [facility] [id number] 04/17/2021 12:00:00 AM EDT eCW1 ([facility]) Unknown [address] [facility] [id number] 11/23/2020 12:00:00 AM EST eCW1 ([facility]) Outpatient [address] [facility] [id number] 11/13/2020 12:00:00 AM EST eCW1 ([facility]) Outpatient [address] [facility] [id number] 10/31/2020 12:00:00 AM EST eCW1 ([facility]) Unknown [address] [facility] [place] [id number] 10/27/2020 12:00:00 AM EST eCW1 ([facility]) Immunizations Vaccine Date Status Description Data Source(s) COVID-19 VACCINE Moderna 05/18/2021 12:00:00 AM EDT completed [facility] Vaccine Series Complete: YESThis Data wa s Submitted to [facility] Via [facility]. COVID-19 VACCINE Moderna 04/13/2021 12:00:00 AM EDT [facility]: NOThis Data was Submitted to [facility] Via [facility]. Medications Medication Brand Name Start Date Product [...] Marrero iley FE 1.5/30 1.5-30 MG-MCG eCW1 ([facility]) Gisselle FE 1.5/30 1.5-30 MG-MCG Gisselle FE 1.5/30 1.5-30 MG-MC G 10/31/2020 12:00:00 AM EST 1.0 {tablet} active Marrero iley FE 1.5/30 1.5-30 MG-MCG eCW1 ([facility]) Gisselle FE 1.5/30 1.5-30 MG-MCG Gisselle FE 1.5/30 1.5-30 MG-MC G 10/31/2020 12:00:00 AM EST 1.0 {tablet} active Marrero iley FE 1.5/30 1.5-30 MG-MCG eCW1 ([facility]) Gisselle FE 1.5/30 1.5-30 MG-MCG Gisselle FE 1.5/30 1.5-30 MG-MC G 10/31/2020 12:00:00 AM EST 1.0 {tablet} active Marrero iley FE 1.5/30 1.5-30 MG-MCG eCW1 ([facility]) Gisselle Fe 10/18 28 Day Pack 1 [...] TABLET BY MOUTH EVERY DAY SOLD: 10/29/2020 [facility] Microgestin FE 10/18 1-20 MG-MCG Microgestin FE 10/18 1-20 MG- MCG 10/27/2020 12:00:00 AM EST 1.0 {tablet} active Mi crogestin FE 10/18 1-20 MG-MCG eCW1 ([facility]) 0.25-35 mg-mcg 07/01/2020 12:00:00 AM EDT tablet [...] type / Coverage type Policy ID Covered democrat ID Covered democrat's relationship to jeter Policy Jeetr Plan Information [facility] [id number] MO2 [id number] R [facility] [id number] MO2 [id number] [facility] [id number] FA2 [id number] EMPIRE PLAN [facility] U [id number] Child [id number] [facility] [id number] FA2 [id number] BCBS EMPIRE JUSTINE DIV [id number] FA2 [id number] [facility] U [id number] Child [id number] BCBS EMPIRE JUSTINE DIV [id number] BCBS EMPIRE JUSTINE DIV [id number] FA2 [id number] [facility] Medigap Part B [id number] Self [id number] [facility] Commercial [id number] Family Dependent [id number] BCBS EMPIRE JUSTINE DIV [id number] FA2 [id number] [facility] Commercial [id number] Family Dependent [id number] [facility] Organization ([facility] [id number] Family Dependent [id number] [facility] Commercial [id number] Family Dependent [id number] [facility] Health [facility] Organization (O) [id number] Family Dependent [id number] [facility] Commercial [id number] Family Dependent [id number] [facility] Health Maintenance Organization (O) [id number] Family Dependent [id number] [employer] [id number] MO2 [id number] [employer] PPO O [id number] S [id number] EMPIRE ([facility]) O [id number] C [id number] SELF PAY O UNAVAILABLE C UNAVAILA BLE [facility] [id number] MO2 [id number] BCBS EMPIRE JUSTINE DIV [id number] [employer] Medigap Part B [id number] Family Dependent [facility] Commercial [id number] Family Depende nt [employer] Medigap Part B [id number] Family Dependent [facility] Health Maintenance Organization ([facility]) [id number] Family Dependent BCBS OF [place] WATN [id number] SP [id number] SELF PAY UNAVAILABLE SP UNAVAILA BLE [facility] [id number] DA2 [id number] EMPIRE ([facility]) P UNAVAILABLE [id number] C UNAVAILABLE [facility] [id number] FA2 [id number] [facility] [id number] FA2 [id number] BCBS [place] JUSTINE DIV [id number] FA2 [id number] [employer] [id number] FA [id number] R O [id number] S [id number] [facility] O [id number] S [id number] Problems, Conditions, and Diagnoses Code Display Name Description Problem Type Effective Dates Data Source(s) E66.9 Obesity Obesity, unspecified Problem 11/13/2020 12:0 0:00 AM EST eCW1 ([facility]) Z68.39 Body mass index 35.00 to 39.99 Body mass index [ BMI] 39.0-39.9, adult Problem 11/13/2020 12:00:00 AM EST eCW1 ([facility]) Surgeries/Procedures No Information Results ID Date Data Source [id number] 09/29/2020 12:00:00 AM EST [facility] Name Value Range Interpretation Code Description Data Candie rce(s) Supporting Document(s) Carestart Rapid COVID Antigen Test [facility] This lab was reported by Анна alfredo. ID Date Data Source [id number] 09/29/2020 12:00:00 AM EST [facility] Name Value Range Interpretation Code Description Data Candie rce(s) Supporting Document(s) SARS coronavirus 2 RNA [Presence] in Res piratory specimen by LAKEISHA with probe detection [facility] This lab was ordered by Анна Giang and reported by [email or web address]. Procedure Social History Code Duration Value Status Description Data Source(s ) Smoking 11/13/2020 12:00:00 AM EST Never Smoker completed Never S moker eCW1 ([facility]) Smoking 11/13/2020 12:00:00 AM EST Never Smoker completed Never S moker eCW1 ([facility]) Smoking 11/13/2020 12:00:00 AM EST Never Smoker completed Never S moker eCW1 ([facility]) Smoking 10/31/2020 12:00:00 AM EST Never Smoker completed Never S moker eCW1 ([facility]) Vital Signs ID Date Data Source UNK Name Value Range Interpretation Code Description Data Source(s) Body weight 201 [lb_av] 201 [lb_av] eCW1 ([facility]) Body height 62.5 [in_i] 62.5 [in_i] eCW1 ([facility]) Body mass index (BMI) [Ratio] 36.17 kg/m2 36.17 kg/m2 eCW1 ([facility]) Heart rate 94 /min 94 /min eCW1 ([facility]) Respiratory rate 18 /min 18 /min eCW1 ([facility]) Body temperature 96.5 [degF] 96.5 [degF] eCW1 ( [facility]) Systolic blood pressure 100 mm[Hg] 100 mm[Hg] e CW1 ([facility]) Diastolic blood pressure 60 mm[Hg] 60 mm[Hg] eCW1 ([facility]) Body weight 205.0 [lb_av] 205.0 [lb_av] eCW1 ([facility]) Body weight 92.99 kg 92.99 kg eCW1 ([facility]) Body height 62.5 [in_i] 62.5 [in_i] eCW1 ([facility]) Body mass index (BMI) [Ratio] 36.89 kg/m2 36.89 kg/m2 eCW1 ([facility]) Systolic blood pressure 114 mm[Hg] 114 mm[Hg] e CW1 ([facility]) Diastolic blood pressure 76 mm[Hg] 76 mm[Hg] eCW1 ([facility]) Patient Treatment Plan of Care Planned Activity Planned Date Details Description Data Source (s) Gisselle FE .530 1.5-30 MG-MCG 10/31/2020 12:00:00 AM EST eCW1 ([facility]) Microgestin FE 10/18 1-20 MG-MCG 10/27/2020 12:00:00 AM EST eCW1 ([facility])
[2021-08-31 13:49] LABS: HEMATOCRIT 42.2 % (36.0-47.0); HEMOGLOBIN 13.9 g/dl (12.0-15.5); MEAN CORPUSCULAR HEMOGLOBIN 28.6 pg (27.0-33.0); MEAN CORPUSCULAR HGB CONC 32.9 g/dl (32.0-36.5); MEAN CORPUSCULAR VOLUME 86.8 fl (80.0-96.0); PLATELET COUNT, AUTOMATED 270 10^3/uL (150-450); RED BLOOD COUNT 4.86 10^6/uL (4.00-5.40); WHITE BLOOD COUNT 7.9 10^3/uL (4.0-10.0)
[2021-08-31 14:15] LABS: ALBUMIN 3.8 GM/DL (3.2-5.2); ALT/SGPT 21 U/L (12-78); BILIRUBIN,DIRECT 0.1 MG/DL (0.0-0.2); BILIRUBIN,TOTAL 0.7 MG/DL (0.2-1.0); BLOOD UREA NITROGEN 8 MG/DL (7-18); CALCIUM LEVEL 9.2 MG/DL (8.5-10.1); CARBON DIOXIDE LEVEL 25 MEQ/L (21-32); CHLORIDE LEVEL 107 MEQ/L (98-107); CREATININE FOR GFR 0.69 MG/DL (0.55-1.30); GLOMERULAR FILTRATION RATE > 60.0 (>60); GLUCOSE, FASTING 85 MG/DL (70-100); LIPASE 76 U/L (73-393); POTASSIUM SERUM 3.9 MEQ/L (3.5-5.1); SODIUM LEVEL 139 MEQ/L (136-145); TOTAL PROTEIN 7.2 GM/DL (6.4-8.2)
[2021-08-31] MEDS ORDERED: ISOVUE-370 76% 100ML VIAL As Ordered ONE (14:26)
--- NOTE | 2021-08-31 14:56 | REP ---
INDICATION: TTP umbilicus region and RLQ COMPARISON: None. TECHNIQUE: CT Scan of the abdomen and pelvis was performed with intravenous administration of 100 cc of Isovue 370, without oral contrast. Sagittal and coronal reconstruction images are performed. FINDINGS: Lung bases: Unremarkable. Liver: Normal Gallbladder: Prior cholecystectomy. Spleen: Normal. Adrenals: Normal. Pancreas: Normal. Kidneys: There is a 1.6 cm left renal cyst. Small and large bowel: Unremarkable. Free fluid: Very mild free fluid in the cul-de-sac as well as just inferior to the cecum. Abdominal aorta: No aneurysm or dissection. Adenopathy: None. Appendix: Not inflamed. Osseous structures: Unremarkable. Pelvis: No mass. Probable involuting cyst right ovary. IMPRESSION: No evidence of appendicitis. There is mild free fluid in the cul-de-sac and in the right pelvis just below the cecum. Involuting cyst is suspected of the right ovary. The findings may indicate a ruptured right ovarian cyst. <Electronically signed by Ahmet Crouch > 08/31/21 [id number]
[2021-08-31] MEDS ORDERED: MACR100C43 PO (15:41)
[2021-08-31] MEDS ORDERED: NAPR-837 PO (15:42)
[2021-08-31] MEDS ORDERED: ZOFR4TAB16 PO (15:42)
[2021-08-31 16:02] VITALS: BP 130/78
== END 2021-08-31 16:17 | disposition home or self-care (01) ==
LOC: M ED 08:27
DX: N83.201 Unspecified ovarian cyst, right side (principal); Z91.048 Other nonmedicinal substance allergy status
CPT/HCPCS: 74177; 80048; 80076; 81001; 83690; 84702; 85027; 87086; 87631; 96374; 99284; J2405; Q9967

== ENCOUNTER → 2021-10-08 | Outpatient (REF) | payer BC, OTHER ==
[~2021-10-08] MED LIST changes: +MACR100C43 PO; +NAPR-837 PO; +ZOFR4TAB16 PO
[2021-10-08 18:32] LABS: RSV AMPLIFICATION NEGATIVE (NEGATIVE)
== END ==
LOC: M LAB REF 16:39
PROVIDERS: ATTEND Physician Assistant Medical
DX: R50.9 Fever, unspecified (principal)

== ENCOUNTER → 2021-10-08 | Outpatient (CLI) | payer BC, OTHER | LOC: M WHC 07:33 | PROVIDERS: ATTEND Advanced Practice Midwife | DX: N83.201 Unspecified ovarian cyst, right side (principal); Z53.8 Procedure and treatment not carried out for other reasons ==

== ENCOUNTER → 2021-10-19 | Outpatient (CLI) | payer BC, OTHER | LOC: M WHC 07:13 | PROVIDERS: ATTEND Advanced Practice Midwife | DX: N83.01 Follicular cyst of right ovary (principal) ==

== ENCOUNTER → 2021-11-27 | Outpatient (REF) | payer OTHER | LOC: M PLALAB 08:05 | PROVIDERS: ATTEND Advanced Practice Midwife | DX: Z12.4 Encounter for screening for malignant neoplasm of cervix (principal) ==

== ENCOUNTER → 2022-05-14 | Outpatient (CLI) | payer OTHER | LOC: M PLALAB 10:34 | PROVIDERS: ATTEND Advanced Practice Midwife | DX: Z34.91 Encounter for supervision of normal pregnancy, unspecified, first trimester (principal) ==

== ENCOUNTER → 2022-05-14 | Outpatient (REF) | payer OTHER ==
[2022-05-14 14:52] LABS: HEMATOCRIT 40.7 % (36.0-47.0); HEMOGLOBIN 13.2 g/dl (12.0-15.5); MEAN CORPUSCULAR HEMOGLOBIN 28.9 pg (27.0-33.0); MEAN CORPUSCULAR HGB CONC 32.4 g/dl (32.0-36.5); MEAN CORPUSCULAR VOLUME 89.1 fl (80.0-96.0); PLATELET COUNT, AUTOMATED 234 10^3/uL (150-450); RED BLOOD COUNT 4.57 10^6/uL (4.00-5.40); WHITE BLOOD COUNT 6.5 10^3/uL (4.0-10.0)
[2022-05-14 16:17] LABS: HEPATITIS C VIRUS ABY INDEX < 0.0 INDEX (<0.8); HIV 1&2 SCREEN CENTAUR NEGATIVE (NEGATIVE)
== END ==
LOC: M PLALAB 10:13
PROVIDERS: ATTEND Advanced Practice Midwife
DX: Z34.91 Encounter for supervision of normal pregnancy, unspecified, first trimester (principal)

== ENCOUNTER → 2022-06-24 | Outpatient (CLI) | payer OTHER | LOC: M WHC 08:37 | PROVIDERS: ATTEND Advanced Practice Midwife | DX: Z34.92 Encounter for supervision of normal pregnancy, unspecified, second trimester (principal) ==

== ENCOUNTER → 2022-07-17 | Outpatient (CLI) | payer OTHER | LOC: M WHC 09:55 | PROVIDERS: ATTEND Advanced Practice Midwife | DX: Z34.92 Encounter for supervision of normal pregnancy, unspecified, second trimester (principal) ==

== ENCOUNTER → 2022-08-05 | Outpatient (CLI) | payer BC, OTHER | LOC: M WHC 06:54 | PROVIDERS: ATTEND Advanced Practice Midwife | DX: Z34.92 Encounter for supervision of normal pregnancy, unspecified, second trimester (principal) ==

== ENCOUNTER → 2022-08-27 | Outpatient (CLI) | payer BC, OTHER ==
[2022-08-27 15:26] LABS: HEMATOCRIT 40.7 % (36.0-47.0); MEAN CORPUSCULAR HGB CONC 31.9 g/dl (32.0-36.5); MEAN CORPUSCULAR VOLUME 90.6 fl (80.0-96.0); PLATELET COUNT, AUTOMATED 221 10^3/uL (150-450); RED BLOOD COUNT 4.49 10^6/uL (4.00-5.40); WHITE BLOOD COUNT 7.2 10^3/uL (4.0-10.0)
[2022-08-27 15:49] LABS: GLUCOSE CHALLENGE TEST 1 HOUR 147 MG/DL (LESS THAN 140)
[2022-08-27 16:16] LABS: HIV 1&2 SCREEN CENTAUR NEGATIVE (NEGATIVE)
[2022-08-27 16:24] LABS: HEPATITIS C VIRUS ABY INDEX 0.1 INDEX (<0.8)
[2022-08-27 17:06] LABS: GC DNA AMPLIFICATION NEGATIVE (NEGATIVE)
== END ==
LOC: M PLALAB 09:18
PROVIDERS: ATTEND Advanced Practice Midwife
DX: Z34.92 Encounter for supervision of normal pregnancy, unspecified, second trimester (principal)

== ENCOUNTER → 2022-09-04 | Outpatient (CLI) | payer BC, OTHER | LOC: M LAB 07:36 | PROVIDERS: ATTEND Advanced Practice Midwife | DX: O99.810 Abnormal glucose complicating pregnancy (principal) ==

== ENCOUNTER → 2022-10-15 | Outpatient (REF) | payer BC, OTHER | LOC: M SFHCWAGY 13:24 | PROVIDERS: ATTEND Advanced Practice Midwife | DX: Z34.93 Encounter for supervision of normal pregnancy, unspecified, third trimester (principal) ==

== ENCOUNTER 2022-11-09 13:23 | Inpatient (IN) | payer BC, OTHER ==
[2022-11-09] VITALS (28 sets, daily range): BP systolic 94–145; BP diastolic 56–96
[2022-11-09] MEDS ORDERED: LACTATED RINGER'S 1000 ML IV STA (13:43)
[2022-11-09] MEDS ORDERED: LR 1,000 ML IV SCH ×2 (13:45→22:35)
[2022-11-09] MEDS ORDERED: LIDOCAINE 1% MDV 20ML VIAL INFIL PRN (13:45)
[2022-11-09] MEDS ORDERED: METHYLERGONOVINE MALEATE 0.2MG/ML 1ML VIAL IM PRN (13:45)
[2022-11-09] MEDS ORDERED: OXYTOCIN DRIP 30 UNITS in IV 1 EA IV PRN (13:45)
[2022-11-09] MEDS ORDERED: CARBOPROST TROMETHAMINE 250 MCG/ML AMP IM PRN (13:45)
[2022-11-09] MEDS ORDERED: PRENTAB9 PO (14:08)
[2022-11-09 14:59] LABS: HEMOGLOBIN 12.3 g/dl (12.0-15.5); MEAN CORPUSCULAR HEMOGLOBIN 27.8 pg (27.0-33.0); MEAN CORPUSCULAR HGB CONC 32.4 g/dl (32.0-36.5); MEAN CORPUSCULAR VOLUME 85.8 fl (80.0-96.0); PLATELET COUNT, AUTOMATED 232 10^3/uL (150-450); RED BLOOD COUNT 4.43 10^6/uL (4.00-5.40); WHITE BLOOD COUNT 13.9 10^3/uL (4.0-10.0)
[2022-11-09] MEDS ORDERED: ePHEDrine SULFATE 25 MG/5 ML(5MG/ML) SYRINGE IVP PRN (15:40)
[2022-11-09] MEDS ORDERED: NALOXONE INJ 0.4MG/1ML VIAL IV PRN (15:40)
[2022-11-09] MEDS ORDERED: EPIDURAL/PCA KEYS XX PRN (15:40)
[2022-11-09] MEDS ORDERED: LR 500 ML IV PRN (15:40)
[2022-11-09] MEDS ORDERED: diphenhydrAMINE 50MG/ML VIAL IV PRN (15:40)
[2022-11-09] MEDS ORDERED: ONDANSETRON 4MG 2ML VIAL IV PRN ×2 (15:40→22:35)
[2022-11-09] MEDS: FENTANYL/ROPIVACAINE/NACL BAG 100 ML EPIDURAL SCH (16:08)
[2022-11-09] MEDS ORDERED: OXYTOCIN 30UNITS IN 0.9% NaCl 500ML IV BAG As Ordered ONE (22:21)
[2022-11-09] MEDS ORDERED: ACETAMINOPHEN TAB 650MG DOSE (2X325MG) PO PRN (22:35)
[2022-11-09] MEDS ORDERED: ACETAMINOPHEN 500 MG TAB PO PRN (22:35)
[2022-11-09] MEDS ORDERED: DIBUCAINE 1% OINTMENT 30GM TOP PRN (22:35)
[2022-11-09] MEDS ORDERED: DOCUSATE SODIUM 100MG CAPSULE PO PRN (22:35)
[2022-11-09] MEDS ORDERED: IBUPROFEN 800 MG TAB PO PRN (22:35)
[2022-11-09] MEDS ORDERED: RHOGAM 300MCG (1500IU) INJ IM SCH (22:35)
[2022-11-09] MEDS ORDERED: OXYTOCIN DRIP 30 UNITS in IV 1 EA IV SCH (22:35)
[2022-11-10 01:00] VITALS: BP 107/66
[2022-11-10] MEDS: FENTANYL/ROPIVACAINE/NACL BAG 100 ML EPIDURAL SCH (02:00)
[2022-11-10 02:12] VITALS: BP 115/64
[2022-11-10] MEDS: IBUPROFEN 600MG TAB PO PRN ×3 (02:36→19:36)
[2022-11-10 05:38] VITALS: BP 112/57
[2022-11-10] MEDS: PRENATAL VITAMINS CHEWABLE TABLET PO SCH (08:47)
[2022-11-10 18:00] VITALS: BP 112/57
[2022-11-11 06:00] VITALS: BP 101/64
[2022-11-11] MEDS ORDERED: MEASLES,MUMPS,RUBELLA VACCINE INJ (MMR-II) SC.IMMUN ONE (09:00)
[2022-11-11] MEDS: PRENATAL VITAMINS CHEWABLE TABLET PO SCH (09:14)
[2022-11-11] MEDS ORDERED: IBUP80TA PO (09:28)
[2022-11-11] MEDS ORDERED: ACET-683 PO (09:28)
== END 2022-11-11 12:00 | disposition home or self-care (01) | DRG 560 ==
LOC: M LDO 13:23 → M LDI 13:47 → M OBS 11-10 01:53
PROVIDERS: ADMIT Obstetrics & Gynecology; ATTEND Obstetrics & Gynecology
PROC: 10E0XZZ Delivery of Products of Conception, External Approach (ICD-10-PCS; principal; 2022-11-09)
PROC: 0UQJXZZ Repair Clitoris, External Approach (ICD-10-PCS; 2022-11-09)
PROC: 10907ZC Drainage of Amniotic Fluid, Therapeutic from Products of Conception, Via Natural or Artificial Opening (ICD-10-PCS; 2022-11-09)
DX: O69.81X0 Labor and delivery complicated by cord around neck, without compression, not applicable or unspecified (principal); O71.82 Other specified trauma to perineum and vulva; Z3A.39 39 weeks gestation of pregnancy; Z37.0 Single live birth

== ENCOUNTER → 2023-01-20 | Outpatient (REF) | payer BC ==
[~2023-01-20] MED LIST changes: +ACET-683 PO; +IBUP80TA PO
[2023-01-20 17:02] LABS: GC DNA AMPLIFICATION NEGATIVE (NEGATIVE)
== END ==
LOC: M SFHCWAGY 15:19
PROVIDERS: ATTEND Obstetrics & Gynecology
DX: Z12.4 Encounter for screening for malignant neoplasm of cervix (principal); Z11.3 Encounter for screening for infections with a predominantly sexual mode of transmission

== ENCOUNTER 2023-03-12 08:20 | Day surgery (SDC) | payer BC ==
[~2023-03-12] VITALS: Ht 154.9 cm; Wt 90.5 kg
[~2023-03-12 08:20] MED LIST changes: +KETOROLAC 60MG 2ML VIAL As Ordered ONE; +LIDOCAINE 2% 100MG/5ML SDV (FOR ANES.) As Ordered ONE; +LR 1,000 ML IV SCH; +MIDAZOLAM INJ 2MG/2ML VIAL As Ordered ONE; +ONDANSETRON 4MG 2ML VIAL As Ordered ONE; +ROCURONIUM BROMIDE 50MG/5ML VIAL As Ordered ONE; +SUGAMMADEX SODIUM 500 MG/5 ML VIAL (BRIDION) As Ordered ONE; +fentaNYL 100 MCG/2 ML INJECTION As Ordered ONE; +propofoL 200 MG/20 ML VIAL As Ordered ONE
[2023-03-12 08:50] LABS: HEMATOCRIT 40.8 % (36.0-47.0); HEMOGLOBIN 13.1 g/dl (12.0-15.5); MEAN CORPUSCULAR HEMOGLOBIN 27.6 pg (27.0-33.0); MEAN CORPUSCULAR HGB CONC 32.1 g/dl (32.0-36.5); MEAN CORPUSCULAR VOLUME 86.1 fl (80.0-96.0); PLATELET COUNT, AUTOMATED 310 10^3/uL (150-450); RED BLOOD COUNT 4.74 10^6/uL (4.00-5.40)
[2023-03-12 09:27] LABS: HCG, SERUM QUALITATIVE NEGATIVE (NEGATIVE)
[2023-03-12] MEDS ORDERED: ACETAMINOPHEN 1000MG 100ML IV BAG As Ordered ONE (09:50)
[2023-03-12] MEDS ORDERED: fentaNYL 100 MCG/2 ML INJECTION As Ordered ONE (09:51)
[2023-03-12] MEDS ORDERED: PERC5TAB12 PO (10:38)
[2023-03-12] MEDS ORDERED: IBUP80TA PO (10:39)
[2023-03-12] MEDS ORDERED: COLA100C5 PO (10:40)
[2023-03-12] MEDS ORDERED: fentaNYL 100 MCG/2 ML INJECTION IV PRN (10:45)
[2023-03-12] MEDS ORDERED: HYDROMORPHONE HCL 0.5 MG/ 0.5 ML SYRINGE IV PRN (10:45)
[2023-03-12] MEDS ORDERED: oxyCODONE 5MG TAB PO PRN (10:45)
[2023-03-12] MEDS ORDERED: ONDANSETRON 4MG 2ML VIAL IV PRN (10:45)
[2023-03-12 11:45] VITALS: BP 111/56; TEMP 97.9; O2SAT 99
== END 2023-03-12 12:11 | disposition home or self-care (01) ==
LOC: M SDC 08:20
PROVIDERS: ATTEND Obstetrics & Gynecology
DX: Z30.2 Encounter for sterilization (principal); J30.2 Other seasonal allergic rhinitis
CPT/HCPCS: 36415; 58661; 84703; 85027; 86850; 86900; 86901; 88302; J0131; J1100; J1885; J2250; J2405; J3010; S0020